=== PATIENT | male | born 1985 | race Caucasian/White ===

== ENCOUNTER 2018-04-22 21:44 | Inpatient (IN) | payer OTHER ==
[2018-04-22 22:24] LABS: #Eosinphils 0.1 thou/uL (0.0-0.7); #Lymphocytes 1.8 thou/uL (1.20-3.40); #Monocytes 0.4 thou/uL (0.11-0.59); #Neutrophils 1.9 thou/uL (1.40-6.50); %Eosinophils 2.7 % (0.0-10.0); %Lymphocytes 42.5 % (21.0-51.0); %Neutrophils 44.8 % (42.0-75.0); Mean Corpuscular HGB CONC 36.2 g/dL (32.0-36.0); Mean Corpuscular Hemoglobin 31.7 pg (27.0-31.0); Mean Corpuscular Volume 87.4 fL (78.0-98.0); Mean Platelet Volume 6.2 fL (7.4-10.4); Platelet Count 268 thou/uL (130-400); RBC Distribution Width 11.6 % (11.5-14.5); Red Blood Cell (RBC) Count 4.75 mill/uL (4.70-6.10); White Blood Cell (WBC) Count 4.3 thou/uL (4.8-10.8)
[2018-04-22 22:32] LABS: INR-International Normal Ratio 2.2; Prothrombin Time 24.5 SEC (12.0-14.7)
[2018-04-22 22:33] LABS: PTT 46.1 SEC (22.9-36.1)
[2018-04-22 22:44] LABS: ALT (SGPT) 33 U/L (8-55); AST (SGOT) 33 U/L (5-34); Albumin 4.7 g/dL (3.5-5.0); Alkaline Phosphatase 66 U/L (40-150); Anion Gap 11 mmol/L (10-20); BUN (Urea Nitrogen) 14 mg/dL (8.9-20.6); Bilirubin, Total 0.6 mg/dL (0.2-1.2); Calc. Creatinine Clearance 0 mL/min (70-130); Calcium 9.6 mg/dL (7.8-10.44); Carbon Dioxide 19 mmol/L (22-29); Chloride 101 mmol/L (98-107); Estimated GFR-MDRD Greater than 90; Glucose 94 mg/dL (70-105); Potassium 4.1 mmol/L (3.5-5.1); Protein, Total 7.7 g/dL (6.0-8.3); Sodium 127 mmol/L (136-145)
[2018-04-22 22:48] LABS: Troponin I Less than 0.010 ng/mL (< 0.028)
[2018-04-22 22:55] LABS: CKMB 7.5 ng/mL (0-6.6)
[2018-04-22 23:09] LABS: Amphetamine Not Detected (NotDetected); Barbiturates Screen Not Detected (NotDetected); Benzodiazepine Screen Not Detected (NotDetected); Cocaine Metabolite Screen Not Detected (NotDetected); Medtox Control Line Valid? VALID (VALID); Medtox Reader # READER 4; Methadone Not Detected (NotDetected); Methamphetamine Not Detected (NotDetected); Opiate Screen Not Detected (NotDetected); Oxycodone Screen Not Detected (NotDetected); Phencyclidine (PCP) Not Detected (NotDetected); THC/Cannabinoid Screen Not Detected (NotDetected); Tricyclic Screen Not Detected (NotDetected)
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
[2018-04-23 00:27] VITALS: BMI 29.7
[2018-04-23] MEDS ORDERED: Acetaminophen 325 MG TAB PO PRN (01:05)
[2018-04-23 01:39] LABS: Hemoglobin A1c 5.1 % (4.0-6.0)
[2018-04-23 01:47] LABS: Anion Gap 11 mmol/L (10-20); BUN (Urea Nitrogen) 15 mg/dL (8.9-20.6); Calc. Creatinine Clearance 213 mL/min (70-130); Carbon Dioxide 16 mmol/L (22-29); Chloride 103 mmol/L (98-107); Estimated GFR-MDRD Greater than 90; Glucose 134 mg/dL (70-105); Magnesium 2.5 mg/dL (1.6-2.6); Phosphorus 2.3 mg/dL (2.3-4.7); Sodium 126 mmol/L (136-145)
[2018-04-23 01:49] LABS: Creatinine, Urine 78.99 mg/dL (63-166)
[2018-04-23 01:51] LABS: Troponin I Less than 0.010 ng/mL (< 0.028)
--- NOTE | 2018-04-23 05:29 | PDOC.FM ---
- Subjective Subjective: NAEO. Patient states he feels well this AM. Denies any chest pain, SOB, N/V/D, or headache. Has no questions or concerns at this point. - Objective MAR Reviewed: Yes Vital Signs & Weight: Vital Signs (12 hours) Temp Pulse Resp BP BP Pulse Ox 04/23/18 04:00 97.8 F 66 12 120/77 97 04/23/18 00:30 98 04/23/18 00:26 97.6 F 68 20 120/76 98 Weight Weight 107.955 kg Result Diagrams: 04/22/18 22:16 04/23/18 05:24 <Sydni Magdaleno - Last Filed: 04/23/18 09:05> - Objective Vital Signs & Weight: Vital Signs (12 hours) Temp Pulse Resp BP BP Pulse Ox 04/23/18 07:51 98.3 F 84 14 124/79 98 04/23/18 04:00 97.8 F 66 12 120/77 97 04/23/18 00:30 98 04/23/18 00:26 97.6 F 68 20 120/76 98 Weight Weight 108.046 kg I&O: 04/22/18 04/23/18 04/24/18 06:59 06:59 06:59 Intake Total 50 Output Total 0 Balance 50 Result Diagrams: 04/22/18 22:16 04/23/18 05:24 <Paul Hart - Last Filed: 04/23/18 11:48> Phys Exam - Physical Examination Constitutional: NAD HEENT: sclera anicteric Neck: supple, full ROM Respiratory: no wheezing, no rales, no rhonchi, clear to auscultation bilateral Cardiovascular: RRR, no significant murmur Gastrointestinal: soft, non-tender, no distention, positive bowel sounds Musculoskeletal: no edema, pulses present Neurological: non-focal, normal sensation, moves all 4 limbs Psychiatric: normal affect, A&O x 3 Skin: no rash, normal turgor <Sydni Magdaleno - Last Filed: 04/23/18 09:05> Dx/Plan (1) Atypical chest pain Code(s): R07.89 - OTHER CHEST PAIN Status: Acute (2) History of pulmonary embolism Code(s): Z86.711 - PERSONAL HISTORY OF PULMONARY EMBOLISM Status: Acute (3) Hyponatremia Code(s): E87.1 - HYPO-OSMOLALITY AND HYPONATREMIA Status: Acute (4) Diabetes insipidus Code(s): E23.2 - DIABETES INSIPIDUS Status: Acute - Plan Plan: 32YOM with a PMH significant for a TBI s/p craniotomy DVT with PE s/p IVC filter and on coumadin who presents for evaluation of CP. 1. Atypical chest pain: - Could be 2/2 to ACS vs. musculoskeletal vs. electrolyte abnormality vs. arrhythmia as EKG was significant for 1st degree AV block. - Will proceed with stress test this AM. - If WNL could possibly d/c later today. 2. Hyponatremia: - Likely related to related desmopressin for what sounds like central DI per patient's history. - Na 127 on presentation & down to 126 this AM. - Will continue to hold desmopressin for now and monitor sodium w/ QD BMPs. - Will also continue w/ fluid restriction. 3. Hx of VTE s/p IVC filter placement: - Aware, will continue home warfarin dose & monitor QD PT/INR. 4. Hx of TBI: - Aware. - Will continue topiramate for seizure PPx. <Sydni Magdaleno - Last Filed: 04/23/18 09:05> Attending Addendum - Attending Addendum Date/Time: 04/23/18 6965 I personally evaluated the patient and discussed the management with Dr. Magdaleno. I agree with the History, Examination, Assessment and Plan documented above with any addition or exceptions noted below. Patient admitted for a host of issues. 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 We have held that for now, but will discuss case with his welding supervisor to hopefully adjust his dose to maintain better control of sodium balance. Further changes pending our conversation with him. He does have an appointment with his endocrine doctor next Thursday. Patient also had chest pain that now resolved, stress testing results pending. He had lower extremity dopplers performed due to history of DVT and pain in the area. Results are consistent with clot burden , but patient has known history of this as well as an IVC filter in place and on therapeutic levels of coumadin. We will not be adjusting his anticoagulation at this time. He is hemodynamically stable and I do not suspect acute PE in this patient. <Paul Hart - Last Filed: 04/23/18 11:48>
[2018-04-23 05:51] LABS: INR-International Normal Ratio 2.4
[2018-04-23 06:00] LABS: Anion Gap 11 mmol/L (10-20); BUN (Urea Nitrogen) 14 mg/dL (8.9-20.6); Calc. Creatinine Clearance 216 mL/min (70-130); Calcium 8.9 mg/dL (7.8-10.44); Carbon Dioxide 15 mmol/L (22-29); Cardiac Risk 6.6 (Less than 4.5); Chloride 104 mmol/L (98-107); Cholesterol 184 mg/dl (< 200 Desired); Estimated GFR-MDRD Greater than 90; Glucose 106 mg/dL (70-105); HDL Cholesterol 28 mg/dL (>60 Neg Risk); LDL Cholesterol, Calculated 112 mg/dL; Potassium 3.8 mmol/L (3.5-5.1); Sodium 126 mmol/L (136-145); Triglycerides 219 mg/dL (Less than 150)
[2018-04-23] MEDS ORDERED: Topiramate 25 MG TAB PO SCH (09:00)
--- NOTE | 2018-04-23 09:23 | ULT ---
RIGHT LOWER EXTREMITY VENOUS DOPPLER WITH SPECTRAL ANALYSIS AND COLORFLOW EVALUATION: 04/23/2018 HISTORY: Left inguinal pain. History of DVT. New onset tenderness. FINDINGS: Sandoval-scale, color-flow, Doppler evaluation, and spectral analysis of the left lower extremity venous structures is performed with 2D imaging. The left lower extremity common femoral, superficial femora l, popliteal, posterior tibial, most proximal greater saphenous, and profunda femoral veins are image d. There is increased luminal echogenicity and decreased lumen compressibility, as well as diminished fl ow within the mid and distal left lower extremity superficial femoral veins. There is normal lumen c ompressibility and flow seen within the remaining visualized deep venous structures of the left lower extremity. IMPRESSION: Nonocclusive deep venous thrombosis, left lower extremity mid and distal superficial femoral veins. The above findings were discussed with Angélica, the nurse in charge of the patient's hospital care, o n the hospital floor, on 04/23/2018, at 8:38 hours. CODE CR POS: [id number]
[2018-04-23] MEDS ORDERED: Warfarin Sodium 5 MG TAB PO SCH ×2 (10:30)
[2018-04-23 12:36] VITALS: BP 138/77; TEMP 98.6
--- NOTE | 2018-04-23 14:11 | NM ---
RADIONUCLIDE STRESS AND REST MYOCARDIAL PERFUSION SCAN WITH CT ATTENUATION CORRECTION AND SPECT IMAGI NG: LEFT VENTRICULAR WALL MOTION EVALUATION AND EJECTION FRACTION: HISTORY: Chest pain. FINDINGS: Adenosine protocol. There is homogeneous uptake of radiotracer throughout the left ventricular myoca rdium on the stress and rest images. No focal perfusion defect or reversibility. QGS analysis of ga selena SPECT images shows some decreased motion of the anterior and lateral ruiz. Ejection fraction is calculated at 55%. IMPRESSION: Normal myocardial perfusion scan showing no evidence of ischemia. Normal left ventricular ejection f raction. POS: [email or web address]
[2018-04-23] MEDS ORDERED: Warfarin Sodium 10 MG TAB PO SCH ×2 (17:00)
--- NOTE | 2018-04-26 02:16 | DIS-2 ---
DATE OF ADMISSION: 04/22/2018 DATE OF DISCHARGE: 04/23/2018 RESIDENT: Sydni Magdaleno MD ADMITTING ATTENDING: Evelyn Palomares MD DISCHARGE ATTENDING: Paul Hart MD CONSULTATIONS: None. PROCEDURES: 1. Nuclear stress test, which showed normal myocardial perfusion with no evidence of ischemia and normal left ventricular ejection fraction. 2. Vascular ultrasound/right lower extremity venous Doppler; significant for nonocclusive deep venous thrombosis of the left lower extremity mid and distal superficial femoral veins. PRIMARY DIAGNOSES: 1. Atypical chest pain suspected to be secondary to electrolyte abnormality. 2. Hyponatremia. SECONDARY DIAGNOSES: 1. Diabetes insipidus. 2. History of pulmonary embolus secondary to right lower extremity deep venous thrombosis, on chronic anticoagulation with warfarin. 3. History of traumatic brain injury, status post craniotomy. 4. History of inferior vena cava filter placement. DISCHARGE MEDICATIONS: 1. Topamax 50 mg p.o. b.i.d. 2. Warfarin sodium 10 mg p.o. as directed. 3. Warfarin sodium 7.5 mg p.o. as directed. DISCONTINUED MEDICATION: Desmopressin 10 mcg/0.1 mL spray, 2 sprays nasal b.i.d. HOSPITAL COURSE: The patient is a 32-year-old male with a past medical history significant for TBI status post craniotomy and DVT with pulmonary embolus, status post IVC filter placement on chronic anticoagulation with Coumadin, who presented to the Emergency Department for evaluation of chest pain. In the Emergency Department, the patient received 1 liter of normal saline and routine labs were drawn including a CBC, PT/INR and PTT, BMP, as well as a hemoglobin A1c, phosphorus, magnesium, cardiac enzymes, and BNP. Given the patient's history, a D-dimer was also obtained. All labs including the cardiac enzymes and BMP were within normal limits with the exception of the patient's sodium level, which was significantly low at a level of 127 on presentation. A chest x-ray was also obtained, which was negative for any acute intrathoracic abnormalities. There was a first-degree AV block noted on the patient's EKG. He was therefore admitted for overnight observation and further workup of his chest pain, as well as an attempt to correct his serum sodium. The patient was placed on fluid restriction and his home desmopressin was held. He was made n.p.o. after midnight for a nuclear stress test to be done the following morning. The following morning, repeat labs showed that the patient's sodium remained stable and was still low at a level of 126. He was therefore kept on fluid restriction and allowed to proceed with an ultrasound of his lower extremities and a nuclear stress test. The nuclear stress test was completely normal with no evidence of ischemia and normal left ventricular ejection fraction. The vascular ultrasound was significant for superficial DVTs of the mid and distal superficial femoral veins; however, as previously mentioned, the patient was and is currently on chronic anticoagulation with warfarin and his INR during hospitalization ranged between 2.2 and 2.4 indicating he was adequately anticoagulated. These clots were therefore determined to most likely be chronic and no further intervention was therefore required. However, regarding the patient's hyponatremia, the patient's outpatient flight control tower operator, Dr. Antonio Melendez, was consulted via telephone regarding how to proceed in the treatment of the patient's low sodium levels. Dr. Melendez recommended continuing to hold the patient's desmopressin and for the patient to see him for his already scheduled follow-up appointment on . Therefore, after ruling out any potentially life-threatening causes of the patient's chest pain, he was therefore cleared for discharge and instructed to discontinue his home desmopressin and continue restricting his fluids to no more than 2 liters per day until he could be seen by Dr. Melendez, his flight control tower operator, on an outpatient basis. DISPOSITION: Stable. DISCHARGE INSTRUCTIONS: 1. Location: Home. 2. Diet: Fluid restriction diet of no more than 2 liters per day. 3. Activity: As tolerated. No restrictions. 4. Followup: The patient was instructed to follow up with his primary care provider within a week of discharge, as well as with outpatient flight control tower operator , Dr. Antonio Melendez for his routine scheduled followup appointment on . JOSE
[2018-04-28] MEDS ORDERED: Warfarin Sodium 7.5 MG TAB PO SCH (17:00)
== END 2018-04-23 15:00 | disposition home or self-care (01) | DRG 644 ==
LOC: ERS 21:44 → 2NO 22:30
PROVIDERS: ADMIT Student in an Organized Health Care Education/Training Program; ATTEND Student in an Organized Health Care Education/Training Program
DX: E22.2 Syndrome of inappropriate secretion of antidiuretic hormone (principal); I82.512 Chronic embolism and thrombosis of left femoral vein; Z86.711 Personal history of pulmonary embolism; E23.2 Diabetes insipidus; Z79.01 Long term (current) use of anticoagulants; I44.0 Atrioventricular block, first degree; Z98.52 Vasectomy status
CPT/HCPCS: 36415; 78452; 80048; 80053; 80061; 80306; 82550; 82570; 83036; 83735; 83880; 84100; 84300; 84443; 84484; 85025; 85610; 85730; 93005; 93017; 96360; A9500; J0153